=== PATIENT | female | born 2005 | race Caucasian/White ===

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

== ENCOUNTER 2024-03-27 08:23 | Emergency (ER) | payer OTHER ==
[~2024-03-27] VITALS: Ht 160 cm; Wt 83.5 kg
[~2024-03-27 08:23] MED LIST: AMOX1TAB8 PO; BENZ100C6 PO; PROM118S5 PO; TAM75 PO
[2024-03-27 08:35] VITALS: BP 124/80; PULSE 75; RESP 16; TEMP 97.6; O2SAT 100
[2024-03-27 08:51] VITALS: BP 113/57; PULSE 78; RESP 16; TEMP 97.6; O2SAT 100
== END 2024-03-27 09:55 | disposition home or self-care (01) ==
LOC: MED 08:23
DX: M77.8 Other enthesopathies, not elsewhere classified (principal); Z79.899 Other long term (current) drug therapy
CPT/HCPCS: 99283